=== PATIENT | male | born 1975 | race Caucasian/White ===

== ENCOUNTER 2018-08-03 18:48 | Emergency (ER) | payer BC, OTHER ==
[2018-08-03] MEDS: NICARDipine HCL 30 MG CAPSULE PO (20:38)
[2018-08-03] MEDS: ATENOLOL 50 MG TAB PO (22:21)
== END 2018-08-03 22:30 | disposition home or self-care (01) ==
LOC: E/R 22:30
DX: I10 Essential (primary) hypertension (principal); Z87.891 Personal history of nicotine dependence
CPT/HCPCS: 93005; 99283-25